=== PATIENT | female | born 1980 | race Caucasian/White ===

== ENCOUNTER 2020-11-30 06:29 | Emergency (ER) | payer SELFPAY ==
[~2020-11-30] VITALS: Ht 170.2 cm; Wt 65.0 kg
[2020-11-30 06:33] VITALS: BP 149/109
[2020-11-30 06:53] LABS: U PREG PATIENT POSITIVE (NEG)
--- NOTE | 2020-11-30 07:16 | ED.ADGEN ---
General Adult EDM: Chief Complaint: ABDOMINAL PAIN HPI: HPI: Patient is a 40 year old female coming in for abdominal cramping starting at 5 AM that woke her from sleep. Patient is also had some vaginal bleeding. Patient states she felt well yesterday. She has not had a menstrual cycle in 13 months, since October of last year, at that she was having menopause. Patient has a history of a thyroid disorder/mass that she was told could cause early menopause. Patient states she has 6 children and feels like she is in labor. Sexually active and on control. No other medical conditions. Denies any vomiting, fevers, cough, diarrhea. She states she has intermittent spotting o kelley the past year. States she has taken several tests last 1 2 to 3 months ago which were negative. Review of Systems: Review of Systems: All other systems within normal limits except for as noted in the HPI Physical Exam: PE: Constitutional: Well developed, well nourished, no acute distress, non-toxic appearance. [] HENT: Normocephalic, atraumatic, bilateral external ears normal, nose normal. [] Eyes: PERRLA, conjunctiva normal, no discharge. [] Neck: No rigidity, supple, no stridor. [] Cardiovascular: Regular rate and rhythm, brisk cap refill [] Lungs & Thorax: Non labored symmetric respirations, no tachypnea or respiratory distress [] Abdomen: Distended tender to palpation, gravid. Skin: Warm, dry, no erythema, no rash. [] Back: Unremarkable Extremities: No deformities, range of motion grossly intact, no lower extremity edema [] Neurologic: Alert and oriented X 3, no focal deficits noted. [] Psychologic: Affect normal, judgement normal, mood normal. [] Current Patient Data: Labs: Laboratory Tests Test 11/30/20 06:45 Urine Test Positive (NEG) EKG: EKG: [] Heart Score: Risk Factors: Risk Factors: DM, Current or recent (<one month) smoker, HTN, HLP, family history of CAD, obesity. Risk Scores: Score 0 - 3: 2.5% MACE over next 6 weeks - Discharge Home Score 4 - 6: 20.3% MACE over next 6 weeks - Admit for Clinical Observation Score 7 - 10: 72.7% MACE over next 6 weeks - Early Invasive Strategies Radiology/Procedures: Radiology/Procedures: [] Course & Med Decision Making: Course & Med Decision Making Attempted bedside ultrasound, ultrasound machine is not working. I called L&D nurses, check cervix was 8 cm. Patient emergently taken to L&D. Evan Disclaimer: Evan Disclaimer: This electronic medical record was generated, in whole or in part, using a voice recognition dictation system. Departure Departure Impression: Primary Impression: Abdominal cramping Disposition: ADMITTED INPT THIS HOSP Condition: GUARDED Referrals: NO PCP (PCP) ZEFERINO BRAN MD Nov 30, 2020 07:16
== END 2020-11-30 06:50 | disposition admitted as inpatient to this hospital (09) ==
LOC: ER 06:29
DX: O26.891 Other specified pregnancy related conditions, first trimester (principal); R10.9 Unspecified abdominal pain
CPT/HCPCS: 81025; 99283